=== PATIENT | female | born 1985 | race Caucasian/White ===

== ENCOUNTER 2019-03-10 13:34 | Emergency (ER) | payer OTHER ==
[2019-03-10] MEDS ORDERED: HYDROmorphone 1 MG/ML CARPUJECT IM STA (14:21)
[2019-03-10] MEDS ORDERED: CHERRY SYRUP 10 ML UDC PO ONE (14:21)
[2019-03-10] MEDS ORDERED: ONDANSETRON ODT 4 MG TABLET TL STA (14:21)
[2019-03-10] MEDS ORDERED: DEXAMETHASONE 10 MG/ML VIAL PO STA (14:21)
--- NOTE | 2019-03-10 14:47 | ED Physician Documentation ---
PD HPI NECK PAIN - Stated complaint Stated Complaint: LT SIDED PX IN ARM AND SHOULDER - Chief complaint Chief Complaint: Ext Problem - History obtained from History obtained from: Patient, Family - History of Present Illness Timing - onset: Today Timing - duration: Hours Timing - details: Abrupt onset, Still present Location: Lower, Left Quality: Pain, Spasm, Sharp Associated symptoms: Numbness. No: Fever, Weakness, Incontinent of urine, Unable to urinate, Hematuria, Incontinent of stool Improves with: Rest, Position Worsened by: Movement, Twisting, Palpation Contributing factors: Other (moved the bed yesterday with her .) Similar symptoms before: Has not had sx before Recently seen: Not recently seen - Additional information Additional information: Previously well 34-year-old female was sitting in the bleachers at a wrestling match when she turned and felt a sudden onset of pain in the left side of her neck with radiation down the left arm. The pain is become severe and she has some numbness to the arm from about the shoulder to the mid forearm. She is not having weakness on that side she is not having shortness of breath she is able to turn her neck but has a reduction in her range of motion. She states that yesterday she helped her move the bed. 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 - Present Medications Home Medications: Ambulatory Orders Medication Instructions Recorded Confirmed Cyclobenzaprine [Flexeril] 10 mg PO TID PRN #20 tablet 03/10/19 Hydrocodone/Acetaminophen 1 - 2 each PO Q6H PRN #14 tablet 03/10/19 [Hydrocodon-Acetaminophen 5-325] Ibuprofen 800 mg PO ONCE 03/10/19 03/10/19 - Allergies Allergies/Adverse Reactions: Allergies Allergy/AdvReac Type Severity Reaction Status Date / Time ketorolac Allergy Anaphylaxis Verified 03/10/19 13:50 - Social History Does the pt smoke?: Yes Does the pt drink ETOH?: No - Immunizations Immunizations are current?: Yes PD ED PE NORMAL - Vitals Vital signs reviewed: Yes (Hypertensive) - General General: Alert and oriented X 3, Well developed/nourished, Other (Appears to be acutely in pain with tears to her eyes.) - HEENT HEENT: Atraumatic, PERRL, EOMI - Neck Neck: Supple, no meningeal sign, No bony TTP, Other (There is point tenderness to the trapezius along the cervical spine especially at about level C5. There is dense spasm to the muscle. There is not tenderness to the carotid artery area of the neck.) - Cardiac Cardiac: RRR, No murmur - Respiratory Respiratory: No respiratory distress, Clear bilaterally - Derm Derm: Normal color, Warm and dry, No rash - Extremities Extremities: No deformity, No edema, Other (There is pain from the trapezius along the cervical spine across the shoulder overlying the insertion of the spinal accessory and down into the shoulder to the proximal forearm. She is able to move the arm in a range of motion. All of this causes and intensity of her pain. The distal neurovascular components are intact. She does have subjective numbness to the arm in the upper forearm. 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, No motor deficit, Normal speech Eye Opening: Spontaneous Motor: Obeys Commands Verbal: Oriented GCS Score: 15 - Psych Psych: Normal mood, Normal affect Results - Vitals Vitals: Vital Signs - 24 hr 03/10/19 03/10/19 13:48 14:56 Temperature 36.1 C L Heart Rate 79 78 Respiratory 18 18 Rate Blood Pressure 166/113 H 138/89 H O2 Saturation 100 97 Oxygen O2 Source Room air PD MEDICAL DECISION MAKING - ED course Complexity details: considered differential, d/w patient, d/w family ED course: 34-year-old female with acute cervical radiculopathy after moving a bed yesterday is in tears and pain here in the emergency department. She is allergic to Toradol. She is administered dexamethasone 10 mg orally and Dilaudid 1 mg IM as well as Zofran TL. We will place her on some pain medication a muscle relaxant and expect resolution of her symptoms. Departure - Departure Disposition: 01 Home, Self Care Clinical Impression: Cervical radiculopathy Instructions: ED Cervical Radiculopathy Follow-Up: JANELLE DE LA VEGA [Primary Care Provider] - Prescriptions: Cyclobenzaprine [Flexeril] 10 mg PO TID PRN #20 tablet PRN Reason: Spasms Hydrocodone/Acetaminophen [Hydrocodon-Acetaminophen 5-325] 1 - 2 each PO Q6H PRN #14 tablet PRN Reason: pain Forms: Activity restrictions
[2019-03-10 14:56] VITALS: BP 138/89
== END 2019-03-10 15:34 | disposition home or self-care (01) ==
LOC: ED 13:34
DX: M54.12 Radiculopathy, cervical region (principal)
CPT/HCPCS: 96372; 99281; 99283; A9270; J1170; Q0162